=== PATIENT | female | born 1985 ===

== ENCOUNTER 2017-08-09 15:06 | Emergency (ER) | payer OTHER ==
[2017-08-09 15:27] VITALS: RESP 18
--- NOTE | 2017-08-09 15:35 | C.PDOC ---
History Of Present Illness 32 y/o female with PSHx of and Appendectomy presents to ED with complaints of right lower back pain x 3 months. Patient states feels similar to symptoms back in [place] 3 years ago and resolved but came back intermittently 3 months ago weekly and now constant for the last 3 days. Patient reports nausea but denies vomiting, dysuria, bowel/bladder incontinence , abdominal pain or any other complaints at this time. LMP 06/25/17 Time Seen by Provider: 08/09/17 15:18 Chief Complaint (Nursing): Abdominal Pain History Per: Patient History/Exam Limitations: no limitations Onset/Duration Of Symptoms: Days Current Symptoms Are (Timing): Still Present Past Medical History Reviewed: Historical Data, Nursing Documentation, Vital Signs Vital Signs: Last Vital Signs Temp 98.0 F 08/09/17 15:24 Pulse 92 H 08/09/17 15:24 Resp 18 08/09/17 15:24 BP 114/74 08/09/17 15:24 Pulse Ox 99 08/09/17 15:40 - Medical History PMH: No Chronic Diseases Surgical History: Appendectomy, Family History: States: No Known Family Hx - Social History Hx Substance Use: No Review Of Systems Except As Marked, All Systems Reviewed And Found Negative. Gastrointestinal: Negative for: Vomiting Genitourinary: Negative for: Dysuria Musculoskeletal: Positive for: Back Pain Physical Exam - Physical Exam Additional Physical Exam Comments: Constitutional: No acute distress. Head: Normocephalic. Atraumatic. Eyes: PERRL. ENT: Moist mucous membranes. Neck: Supple. Cardiovascular: Regular rate. Radial pulse 2+ bilaterally. Chest: No tenderness. Respiratory: Clear to auscultation bilaterally. GI: Soft. Nontender. Nondistended. Back: No CVA tenderness. No Midline Tenderness Musculoskeletal: No tenderness or swelling of extremities. Skin: No rash. Neurologic: Alert, no focal deficit. ED Course And Treatment - Laboratory Results Result Diagrams: 08/09/17 16:24 08/09/17 15:43 O2 Sat by Pulse Oximetry: 99 (RA) Pulse Ox Interpretation: Normal Medical Decision Making Medical Decision Making: Plan: LS spine xray, UA, Blood work, Toradol Due to longevity of symptoms, XR ordered. FINDINGS: BONES: No evidence of acute compression fractures nor retropulsed fragments however note made of what may represent unilateral pars interarticularis defects on the lateral projection. . Vertebral bodies exhibit normal stature. Vertebral bodies and facets normally aligned. DISC SPACES: Disc space heights maintained. OTHER FINDINGS: None. IMPRESSION: No acute fractures nor retropulsed fragments. Suspect chronic unilateral pars interarticularis defect. test negative. No infection or hematuria on UA. Labs unremarkable. Will discharge, follow up Ortho, return to ED for worsening pain, fever, dysuria , numbness, weakness, urinary or bowel changes. Disposition - Disposition Referrals: Ray Cruz MD [Staff Provider] - Disposition: HOME/ ROUTINE Disposition Time: 16:55 Condition: STABLE Additional Instructions: FINDINGS: BONES: No evidence of acute compression fractures nor retropulsed fragments however note made of what may represent unilateral pars interarticularis defects on the lateral projection. . Vertebral bodies exhibit normal stature. Vertebral bodies and facets normally aligned. DISC SPACES: Disc space heights maintained. OTHER FINDINGS: None. IMPRESSION: No acute fractures nor retropulsed fragments. Suspect chronic unilateral pars interarticularis defect. Prescriptions: Ibuprofen [Motrin] 1 tab PO Q6 #30 tab Instructions: Back Pain (ED) Forms: [employer] (Nepali) - Clinical Impression Clinical Impression: Low back pain - Scribe Statement The provider has reviewed the documentation as recorded by the Anaiberic Small All medical record entries made by the Anaiberic were at my direction and personally dictated by me. I have reviewed the chart and agree that the record accurately reflects my personal performance of the history, physical exam, medical decision making, and the department course for this patient. I have also personally directed, reviewed, and agree with the discharge instructions and disposition.
[2017-08-09 15:58] LABS: CHLORIDE 100 mmol/L (98-107); SODIUM 136 mmol/L (132-148)
[2017-08-09 15:59] LABS: POTASSIUM 4.2 mmol/L (3.6-5.2)
[2017-08-09 16:01] LABS: ALB/GLOB RATIO 1.1 (1.0-2.1); AST/SGOT 20 U/L (14-36); BILIRUBIN,TOTAL 0.7 mg/dL (0.2-1.3); CARBON DIOXIDE 27 mmol/L (22-30); GFR AFRICAN-AMERICAN > 60; TOTAL PROTEIN 8.2 g/dL (6.3-8.3)
[2017-08-09 16:02] LABS: ALKALINE PHOSPHATASE 58 U/L (38-126); ALT/SGPT 30 U/L (9-52); BLOOD UREA NITROGEN 12 mg/dL (7-17); CALCIUM 9.5 mg/dl (8.6-10.4); GLUCOSE,RANDOM 88 mg/dL (65-105)
[2017-08-09 16:29] LABS: HEMATOCRIT 37.2 % (34.0-47.0); MEAN CELL VOLUME 91.7 fL (81.0-99.0); MEAN CORPUSCULAR HEMOGLOBIN 30.8 pg (27.0-31.0); MEAN CORPUSCULAR HGB CONC 33.6 g/dL (33.0-37.0); MEAN PLATELET VOLUME 9.1 fL (7.2-11.7); WHITE BLOOD COUNT 6.5 K/uL (4.8-10.8)
[2017-08-09 16:36] LABS: RBC URINE 3 /hpf (0-3); URINE BACTERIA RARE (<OCC); URINE BILIRUBIN NEGATIVE (NEGATIVE); URINE BLOOD NEGATIVE (NEGATIVE); URINE COLOR Yellow (YELLOW); URINE GLUCOSE (UA) NORMAL (Normal); URINE KETONE NEGATIVE (NEGATIVE); URINE LEUKOCYTE ESTERASE NEG Leu/uL (Negative); URINE PROTEIN NEGATIVE (NEGATIVE); URINE UROBILINOGEN NORMAL mg/dL (0.2-1.0); WBC URINE < 1 /hpf (0-5)
--- NOTE | 2017-08-09 16:52 | RAD ---
PROCEDURE: Radiographs of the Lumbar Spine. HISTORY: lower back pain COMPARISON: No prior. FINDINGS: BONES: No evidence of acute compression fractures nor retropulsed fragments however note made of what may represent unilateral pars interarticularis defects on the lateral projection. . Vertebral bodies exhibit normal stature. Vertebral bodies and facets normally aligned. DISC SPACES: Disc space heights maintained. OTHER FINDINGS: None. IMPRESSION: No acute fractures nor retropulsed fragments. Suspect chronic unilateral pars interarticularis defect.
[2017-08-09 17:16] VITALS: BP 109/75; PULSE 64; TEMP 97.6; O2SAT 100
== END 2017-08-09 17:16 | disposition home or self-care (01) ==
LOC: C.ER 15:06
DX: M54.5 Low back pain (principal)
CPT/HCPCS: 72100; 80053; 81001; 83690; 84703; 85027; 96374; 99284; J1885

== ENCOUNTER 2017-10-07 20:32 | Emergency (ER) | payer OTHER ==
[2017-10-07 20:57] VITALS: O2SAT 100
--- NOTE | 2017-10-07 22:42 | C.PDOC ---
History Of Present Illness 32 year old female with no PMHx presents to the ER for evaluation of dizziness and palpitations that began 20 minutes after taking Midol. Patient states she has been taking Midol for her menstrual cramps for the past 3 months and has not had any reaction until now. Patient reports mild improvement in sx for past hour. Otherwise, pt Denies headache, vertigo, throat swelling or tightness, drooling, dyspnea, CP, SOB, wheezing, abd. pain, N/V/D, swelling. Ambulate to ED for evaluation, not in any apparent distress. Time Seen by Provider: 10/07/17 21:01 Chief Complaint (Nursing): Dizziness/Lightheaded History Per: Patient History/Exam Limitations: no limitations Onset/Duration Of Symptoms: Hrs Current Symptoms Are (Timing): Better Activity At Onset Of Symptoms: Other (Not known) Associated Symptoms Preceding Syncopal Episode: No Predromal Symptoms (Sudden Onset) Seizure Or Post-ictal Symptoms: None Possible Causative Factor(s): New Medications (Midol) Fall Associated With With Symptoms: No Recent travel outside of the [place]: No - Symptoms Of CVA Associated Symptoms: denies: Impaired Speech, Seizure Activity, New Vision Deficit(Left), New Vision Deficit(Right), Decreased Ability To Walk, New Confusion Past Medical History Reviewed: Historical Data, Nursing Documentation, Vital Signs Vital Signs: Last Vital Signs Temp 97.6 F 10/07/17 22:42 Pulse 74 10/07/17 22:42 Resp 18 10/07/17 22:42 BP 95/60 L 10/07/17 22:42 Pulse Ox 100 10/07/17 23:02 - Medical History PMH: No Chronic Diseases Surgical History: Appendectomy, Family History: States: Unknown Family Hx - Social History Hx Alcohol Use: No Hx Substance Use: No - Immunization History Hx Tetanus Toxoid Vaccination: No Hx Influenza Vaccination: No Hx Pneumococcal Vaccination: No Review Of Systems Constitutional: Negative for: Fever, Chills Eyes: Negative for: Vision Change Cardiovascular: Positive for: Palpitations. Negative for: Chest Pain Respiratory: Negative for: Shortness of Breath, Wheezing Gastrointestinal: Negative for: Nausea, Vomiting, Abdominal Pain Neurological: Positive for: Dizziness. Negative for: Weakness, Numbness Physical Exam - Physical Exam Appears: Well, Non-toxic, No Acute Distress Skin: Normal Color, Warm, Dry, No Rash Head: Normacephalic Eye(s): bilateral: PERRL Ear(s): Bilateral: Normal Nose: Normal, No Flaring, No Discharge Oral Mucosa: Moist, No Drooling Tongue: Normal Appearing, No Swelling Lips: Normal Appearing, No Swelling Throat: No Erythema, No Exudate, No Drooling, Other (UVULA MIDLINE, NO EDEMA.) Neck: Trachea Midline, Supple Cardiovascular: Rhythm Regular, No Murmur, No JVD Respiratory: No Decreased Breath Sounds, No Accessory Muscle Use, No Stridor, No Wheezing Gastrointestinal/Abdominal: Soft, No Tenderness Extremity: Normal ROM, No Pedal Edema, No Deformity, No Swelling Neurological/Psych: Oriented x3, Normal Speech ED Course And Treatment ECG: Interpreted By Me, Viewed By Me (and ED attending) Interpretation Of ECG: SR@85/min, NAD, no acute T wave or ST-T changes. O2 Sat by Pulse Oximetry: 100 Pulse Ox Interpretation: Normal Progress Note: Pt was OBS in ED for 15. hrs and reports moderate improvement in symptoms. On re-evaluation, pt is afebrile, hemodynamicaly stable. Non-toxic, Tolerate Po well in ED. PulseOx 99% RA. ENT: no acute findings. uvula midline , no edema. neck: Supple, (-) meningeal sign. Lungs: CTA B/L, BS equal B/L. CVS: (+)S1S2, reg. Abd: benign. no peripheral edema. EKg review and appears normal. pt has clinical findings c/w medication reaction. Pt advised on course of ds. ref. to F/u with PMD, Paper Goods Machine Operator in 2-3 days for re-eavl. return to ED if any worsening or new changes Disposition Counseled Patient/Family Regarding: Studies Performed, Diagnosis, Need For Followup, Rx Given - Disposition Referrals: [facility] [Outside] Disposition: HOME/ ROUTINE Disposition Time: 22:03 Condition: STABLE Additional Instructions: DO NOT TAKE MIDROL IN FUTURE DUE TO MEDICATION REACTION ENCOURAGE FLUIDS TAKE MEDICATION PRESCRIBED FOLLOW UP WITH PMD, PSYCHOLOGY INSTRUCTOR IN 2-3 DAYS FOR RE-EVALUATION. RETURN TO ED IF ANY WORSENING OR NEW CHANGES. Prescriptions: DiphenhydrAMINE [Benadryl] 25 mg PO BID #10 cap Famotidine [Pepcid] 20 mg PO BID #10 tab Instructions: Palpitations (ED) Forms: [facility] (Tristanian) Print Language: FRENCH - Clinical Impression Clinical Impression: Palpitation, Medication reaction - PA / FARM LOAN REPRESENTATIVE / Resident Statement MD/DO has reviewed & agrees with the documentation as recorded. - Scribe Statement The provider has reviewed the documentation as recorded by the Scribe Karl Irwin All medical record entries made by the Anaiberic were at my direction and personally dictated by me. I have reviewed the chart and agree that the record accurately reflects my personal performance of the history, physical exam, medical decision making, and the department course for this patient. I have also personally directed, reviewed, and agree with the discharge instructions and disposition.
[2017-10-07 22:43] VITALS: BP 95/60; PULSE 74; RESP 18; TEMP 97.6
--- NOTE | 2017-10-08 22:13 | CARD ---
APPROVED REPORT EKG Measurement Heart [id number] <Conclusion> Normal sinus rhythm with sinus arrhythmia Normal ECG
== END 2017-10-07 22:59 | disposition home or self-care (01) ==
LOC: C.ER 20:32
DX: R00.2 Palpitations (principal); T39.1X5A Adverse effect of 4-Aminophenol derivatives, initial encounter

== ENCOUNTER 2018-02-04 01:19 | Emergency (ER) | payer OTHER ==
[2018-02-04 01:34] VITALS: O2SAT 100
--- NOTE | 2018-02-04 01:44 | C.PDOC ---
History Of Present Illness 32 year old female presents to the ED for evaluation of trouble breathing. Patient reports she was at a alliance party with her , both had been drinking when she received a call from her son who live in the [place]. Patient states her son told her "he wanted to harm himself". Patient started hyperventilating and was brought to the ED for evaluation. Upon arrival to the ED patient was tearful, gasping for air with O2 saturation 100%. Patient is unable to provide further history due to emotional state. Chief Complaint (Nursing): Anxiety History Per: Patient History/Exam Limitations: clinical condition Onset/Duration Of Symptoms: Hrs Current Symptoms Are (Timing): Still Present Suicide/Self Injury Attempted (Context): None Modifying Factor(s): Alcohol Associated Symptoms: Anxiety. denies: Depression, Suicidal Thoughts, Suicidal Plan Recent travel outside of the [place]: No Additional History Per: Patient Past Medical History Reviewed: Historical Data, Nursing Documentation, Vital Signs Vital Signs: Last Vital Signs Temp Pulse 70 02/04/18 02:17 Resp 14 02/04/18 02:17 BP 114/75 02/04/18 02:17 Pulse Ox 100 02/04/18 02:17 - Medical History PMH: No Chronic Diseases Surgical History: Appendectomy, Family History: States: Unknown Family Hx - Social History Hx Alcohol Use: No Hx Substance Use: No - Immunization History Hx Tetanus Toxoid Vaccination: No Hx Influenza Vaccination: No Hx Pneumococcal Vaccination: No Review Of Systems Constitutional: Negative for: Fever, Chills Cardiovascular: Negative for: Chest Pain Respiratory: Positive for: Shortness of Breath Gastrointestinal: Negative for: Abdominal Pain Skin: Negative for: Rash Psych: Positive for: Anxiety. Negative for: Depression Physical Exam - Physical Exam Appears: Non-toxic, Agitated, Other (crying, AOB) Skin: Normal Color, Warm, Dry Head: Atraumatic, Normacephalic Eye(s): bilateral: Other (conjuctival injection) Nose: No Discharge Oral Mucosa: Moist Neck: Normal ROM, Supple Chest: Symmetrical Cardiovascular: Rhythm Regular, No Murmur Respiratory: Normal Breath Sounds, No Rales, No Rhonchi, No Wheezing Gastrointestinal/Abdominal: Soft, No Tenderness, No Guarding, No Rebound Extremity: Normal ROM, No Tenderness, No Swelling Neurological/Psych: Oriented x3, Normal Speech Gait: Steady ED Course And Treatment O2 Sat by Pulse Oximetry: 100 (On RA) Pulse Ox Interpretation: Normal Medical Decision Making Medical Decision Making: Impression: anxiety attack Plan: * Ativan 0.5 mg IVP Disposition - Disposition Disposition: HOME/ ROUTINE Disposition Time: 05:02 Condition: GOOD Prescriptions: ALPRAZolam [Xanax] 0.25 mg PO TID PRN #15 tab PRN Reason: Anxiety Instructions: Anxiety, Adult (DC) Forms: Gen Discharge Inst Tajik, [employer] (Czech) Print Language: CZECH - Clinical Impression Clinical Impression: Anxiety - Scribe Statement The provider has reviewed the documentation as recorded by the Scribe Guillermo Abebe All medical record entries made by the Scribe were at my direction and personally dictated by me. I have reviewed the chart and agree that the record accurately reflects my personal performance of the history, physical exam, medical decision making, and the department course for this patient. I have also personally directed, reviewed, and agree with the discharge instructions and disposition.
[2018-02-04 02:18] VITALS: BP 114/75; PULSE 70; RESP 14
== END 2018-02-04 02:17 | disposition home or self-care (01) ==
LOC: C.ER 01:19
DX: F41.9 Anxiety disorder, unspecified (principal)
CPT/HCPCS: 96374; 99283; J2060

== ENCOUNTER 2018-05-29 18:27 | Emergency (ER) | payer OTHER ==
[2018-05-29 18:46] VITALS: RESP 18
[2018-05-29] MEDS ORDERED: Sodium Chloride 0.9% 1,000 ML IV ONE (19:24)
--- NOTE | 2018-05-29 19:28 | C.PDOC ---
History Of Present Illness 33 year old female presents to the ER with a complaint of anterior chest wall pain for the past 2 days. Patient states the pain is to the mid sternal area and is increased with deep breathing. Denies nausea, vomiting, or SOB. Chief Complaint (Nursing): Chest Pain History Per: Patient History/Exam Limitations: no limitations Onset/Duration Of Symptoms: Days Current Symptoms Are (Timing): Still Present Associated Symptoms: denies: Nausea, Dyspnea, Diaphoresis, Syncope Modifying Factors: None Exacerbating Factors: None Alleviating Factors: None Recent travel outside of the [place]: No Past Medical History Reviewed: Historical Data, Nursing Documentation, Vital Signs Vital Signs: Last Vital Signs Temp 97.8 F 05/29/18 18:44 Pulse 88 05/29/18 18:44 Resp 18 05/29/18 18:44 BP 130/82 05/29/18 18:44 Pulse Ox 98 05/29/18 20:54 Surgical History: Appendectomy, Family History: States: Unknown Family Hx - Social History Hx Alcohol Use: No Hx Substance Use: No - Immunization History Hx Tetanus Toxoid Vaccination: No Hx Influenza Vaccination: No Hx Pneumococcal Vaccination: No Review Of Systems Constitutional: Negative for: Fever, Chills Cardiovascular: Positive for: Chest Pain. Negative for: Palpitations Respiratory: Negative for: Cough, Shortness of Breath Gastrointestinal: Negative for: Nausea, Vomiting Neurological: Negative for: Weakness, Numbness Physical Exam - Physical Exam Appears: Non-toxic Skin: Normal Color, Warm, Dry Head: Atraumatic, Normacephalic Eye(s): bilateral: Normal Inspection Oral Mucosa: Moist Neck: Normal, Supple Chest: Symmetrical, Tenderness (On palpation of mid sternal area) Cardiovascular: Rhythm Regular Respiratory: Normal Breath Sounds, No Rales, No Rhonchi, No Wheezing Gastrointestinal/Abdominal: Soft, No Tenderness Back: No CVA Tenderness Neurological/Psych: Oriented x3, Normal Speech ED Course And Treatment - Laboratory Results Result Diagrams: 05/29/18 19:50 05/29/18 19:50 ECG: Interpreted By Me, Viewed By Me ECG Rhythm: Sinus Rhythm ECG Interpretation: Normal, No Acute Changes Interpretation Of ECG: NSR, normal tracings. Rate From EC O2 Sat by Pulse Oximetry: 98 (Room air) Pulse Ox Interpretation: Normal - Radiology CXR: Interpreted by Me, Viewed By Me CXR Interpretation: Yes: No Acute Disease. No: Infiltrates (normal chest film) Progress Note: EKG, blood work, and CXR ordered. IV fluids and toradol administered. Disposition - Disposition Referrals: [facility] [Outside] Disposition: HOME/ ROUTINE Disposition Time: 20:56 Condition: STABLE Prescriptions: Naproxen 375 mg PO Q6 #14 tablet Instructions: Costochondritis (DC) Forms: [employer] (Israeli), Gen Discharge Inst Slovak Print Language: RUSSIAN - POA Present On Arrival: None - Clinical Impression Clinical Impression: Chest wall pain - Scribe Statement The provider has reviewed the documentation as recorded by the Scribe Karl Irwin All medical record entries made by the Scribe were at my direction and personally dictated by me. I have reviewed the chart and agree that the record accurately reflects my personal performance of the history, physical exam, medical decision making, and the department course for this patient. I have also personally directed, reviewed, and agree with the discharge instructions and disposition.
[2018-05-29] MEDS ORDERED: Sodium Chloride 0.9% 1,000 ML ONE (19:58)
[2018-05-29 20:07] LABS: BASO % 0.4 % (0.0-2.0); EOS % 0.3 % (0.0-4.0); HEMOGLOBIN 14.1 g/dL (11.0-16.0); LYMPH # 1.9 K/uL (1.0-4.3); LYMPH % 25.7 % (20.0-40.0); MEAN CELL VOLUME 91.3 fL (81.0-99.0); MONO # 0.7 K/uL (0.0-0.8); MONO % 8.8 % (0.0-10.0); NEUT # 4.8 K/uL (1.8-7.0); NEUT % 64.8 % (50.0-75.0); NRBC % 0.1 % (0.0-2.0); RBC 4.54 Mil/uL (3.80-5.20); RED CELL DISTRIBUTION WIDTH 13.5 % (11.5-14.5); WHITE BLOOD COUNT 7.5 K/uL (4.8-10.8)
[2018-05-29 20:20] LABS: ALB/GLOB RATIO 1.3 (1.0-2.1); ALBUMIN 4.6 g/dL (3.5-5.0); ALT/SGPT 33 U/L (9-52); AST/SGOT 35 U/L (14-36); BLOOD UREA NITROGEN 11 mg/dL (7-17); CALCIUM 9.7 mg/dl (8.6-10.4); GFR AFRICAN-AMERICAN > 60; GFR NON-AFRICAN AMERICAN > 60
[2018-05-29 20:32] LABS: BARBITURATES, UR NEGATIVE (NEGATIVE); BENZODIAZEPINES, UR NEGATIVE (NEGATIVE); OPIATES, UR NEGATIVE (NEGATIVE); PHENCYCLIDINE, UR NEGATIVE (NEGATIVE)
[2018-05-29 21:12] VITALS: BP 99/66; PULSE 75; TEMP 97.6; O2SAT 100
--- NOTE | 2018-05-30 08:23 | RAD ---
Date of service: 05/29/2018 HISTORY: chest pain COMPARISON: No prior. TECHNIQUE: Chest PA and lateral FINDINGS: LUNGS: No active pulmonary disease. PLEURA: No significant pleural effusion identified. No pneumothorax apparent. CARDIOVASCULAR: Normal. OSSEOUS STRUCTURES: No significant abnormalities. VISUALIZED UPPER ABDOMEN: Normal. OTHER FINDINGS: None. IMPRESSION: No active disease.
== END 2018-05-29 21:13 | disposition home or self-care (01) ==
LOC: C.ER 18:27
DX: R07.89 Other chest pain (principal)
CPT/HCPCS: 71046; 80053; 80324; 80345; 80346; 80349; 80353; 80358; 80361; 83992; 84484; 84703; 85025; 85378; 96374; 99285; J1885; J7030